=== PATIENT | male | born 1945 | race Caucasian/White ===

== ENCOUNTER → 2017-03-15 | Outpatient (REF) | payer MEDICARE | LOC: M LAB REF 14:58 | PROVIDERS: ATTEND Ophthalmology | DX: H00.024 Hordeolum internum left upper eyelid (principal); L82.1 Other seborrheic keratosis ==

== ENCOUNTER → 2023-08-04 | Outpatient (CLI) | payer MEDICARE | LOC: M RAD 09:23 | PROVIDERS: ATTEND Registered Nurse | DX: M51.36 Other intervertebral disc degeneration, lumbar region (principal) | CPT/HCPCS: 78306; A9503 ==

== ENCOUNTER → 2025-03-14 | Outpatient (REF) | payer MEDICARE | LOC: M LAB REF 18:16 | PROVIDERS: ATTEND Internal Medicine Nephrology | DX: N40.1 Benign prostatic hyperplasia with lower urinary tract symptoms (principal); Z12.5 Encounter for screening for malignant neoplasm of prostate ==